=== PATIENT | male | born 1940 | race African-American/Black ===

== ENCOUNTER 2021-03-05 15:58 | Inpatient (IN) | payer OTHER, MEDICAID ==
[~2021-03-05] VITALS: Ht 193 cm; Wt 101.2 kg
[2021-03-05 16:10] VITALS: BP_SYST 142
--- NOTE | 2021-03-05 16:13 | NUR ---
Placed in room 01 . Placed on camp dining room attendant, blood pressure machine and pulse oximeter. To gown for exam. Side rails up.
[2021-03-05] MEDS ORDERED: MOM PO (16:20)
[2021-03-05] MEDS ORDERED: PRAV10TA PO (16:20)
[2021-03-05] MEDS ORDERED: OLAN10TA19 PO (16:20)
[2021-03-05] MEDS ORDERED: CHOL3000 PO (16:20)
[2021-03-05] MEDS ORDERED: ACET325C6 PO (16:20)
[2021-03-05] MEDS ORDERED: HYDR-4039 PO (16:20)
[2021-03-05] MEDS ORDERED: NA P133E41 RC (16:20)
[2021-03-05] MEDS ORDERED: TRAZ-250 PO (16:20)
[2021-03-05] MEDS ORDERED: ALBU8.5H8 INH (16:20)
[2021-03-05] MEDS ORDERED: ASPI-1155 PO (16:20)
[2021-03-05] MEDS ORDERED: FURO-150 PO (16:20)
[2021-03-05] MEDS ORDERED: CARV25TA55 PO (16:20)
[2021-03-05] MEDS ORDERED: ASCO500T20 PO (16:20)
[2021-03-05] MEDS ORDERED: BISA10SU61 RC (16:20)
[2021-03-05] MEDS ORDERED: MEMA10TA PO (16:20)
[2021-03-05] MEDS ORDERED: CHOL2400 MC (16:20)
[2021-03-05] MEDS ORDERED: TAMS0.4C96 PO (16:20)
[2021-03-05] MEDS ORDERED: DOCU-156 PO (16:20)
[2021-03-05] MEDS ORDERED: CRAN450T9 PO (16:20)
[2021-03-05] MEDS ORDERED: MONT10TA33 PO (16:20)
[2021-03-05] MEDS ORDERED: SENN8.6T19 PO (16:20)
--- NOTE | 2021-03-05 16:20 | NUR ---
Medication reconciliation completed with information provided by [facility]. Any prior medication reconciliation on file was reviewed and corrected.
--- NOTE | 2021-03-05 16:22 | NUR ---
PATIENT ARRIVED WITH POLST STATING FULL CODE. Patient's code status is FULL CODE paperwork completed and placed in chart.
--- NOTE | 2021-03-05 16:25 | NUR ---
pt bib ambulance with complaint of generalized weakness. pt is AAOX1 to self. pt denies any pain. pt is able to followe commands. PERRL. pt is able to lift both arms above head but has bilateral lower extremity weakness. pt resting in gurney slightly tachypnic 24 Breaths per minute and slightly elevated blood pressure 142/ 82.
--- NOTE | 2021-03-05 16:40 | NUR ---
# 22 gauge angiocath placed to right FA. Use of asceptic technique. Opsite placed over site. Blood return noted. Blood for lab drawn from site. Flushed with 10 cc of normal saline. No evidence of infiltration noted. Patient tolerated well.
--- NOTE | 2021-03-05 16:58 | NUR ---
COVID AND MRSA SWAB COLLECTED AND SENT TO LAB
--- NOTE | 2021-03-05 17:04 | NUR ---
pt arrives from [facility]
[2021-03-05 17:30] LABS: BILIRUBIN,URINE NEGATIVE (NEGATIVE); BLOOD, URINE 2+ (NEGATIVE); COLOR,URINE YELLOW (YELLOW); GLUCOSE,URINE NEGATIVE (NEGATIVE); KETONES,URINE NEGATIVE (NEGATIVE); LEUKOCYTE ESTERASE ,URINE TRACE (NEGATIVE); NITRITE, URINE NEGATIVE (NEGATIVE); PH,URINE 5.5 (5.0-8.0); PROTEIN URINE 2+ (NEGATIVE); UROBILINOGEN,URINE 0.2 (0.2-1.0)
[2021-03-05] MEDS ORDERED: NACL 0.9% 1,000 ML IV ONE (17:30)
[2021-03-05 17:38] LABS: CLARITY/URINE HAZY (CLEAR)
--- NOTE | 2021-03-05 17:41 | NUR ---
lab at bedside.
[2021-03-05 17:55] LABS: BACTERIA,URINE FEW /HPF (None Seen); MUCUS,URINE None Seen /LPF (None Seen); RBC,URINE 20-50 /HPF (0-3); URINE AMORPHOUS URATE 2+ /HPF (None Seen)
[2021-03-05 17:55] LABS: BASOPHILS # (AUTO) 0.3 K/uL (0.0-0.2); BASOPHILS % (AUTO) 2.1 % (0.0-2.0); EOSINOPHILS # (AUTO) 0.1 K/uL (0.0-0.4); EOSINOPHILS % (AUTO) 0.8 % (0.0-4.0); HEMOGLOBIN 12.8 g/dL (14.0-18.0); LYMPHOCYTES % (AUTO) 8.5 % (20.5-51.5); MEAN CORPUSCULAR HEMOGLOBIN 29 pg (27-31); MEAN CORPUSCULAR HGB CONC 33 % (32-36); MEAN CORPUSCULAR VOLUME 88 fL (79.0-98.0); MONOCYTES # (AUTO) 1.3 K/uL (0.0-1.0); MONOCYTES % (AUTO) 10.8 % (1.7-9.3); NEUTROPHILS # (AUTO) 9.5 K/uL (1.8-7.7); NEUTROPHILS % (AUTO) 77.8 % (40.0-70.0); PLATELET COUNT (AUTO) 224 K/uL (130-430); RED BLOOD CELL COUNT(AUTO) 4.41 MIL/uL (4.2-6.2); RED CELL DISTRIBUTION WIDTH 15.3 % (9.0-15.0); WHITE BLOOD COUNT (AUTO) 12.2 K/uL (4.8-10.8)
[2021-03-05 18:05] LABS: ANION GAP 9 (5-15); CALCIUM 8.8 mg/dL (8.4-11.0); CHLORIDE 108 mmol/L (98-107); CREATININE 1.83 mg/dL (0.55-1.30); GLUCOSE 103 mg/dL (70-99); POTASSIUM 3.9 mmol/L (3.5-5.1); SODIUM SERUM 143 mmol/L (136-145); UREA NITROGEN, BLOOD 18 mg/dL (8-21)
[2021-03-05 18:11] LABS: PROTHROMBIN TIME 10.3 SECS (9.5-12.5)
--- NOTE | 2021-03-05 18:18 | NUR ---
PT WAS GIVEN SANDWHCIH AND WATER. PT TOLERATED WELL. MO COMPLAINTS AT THIS TIME. RESTING IN [facility]
[2021-03-05 18:22] LABS: ALANINE AMINOTRANSFERASE 11 U/L (12-78); ALBUMIN 2.6 g/dL (3.4-4.8); ASPARTATE AMINOTRANSFERASE 6 U/L (10-37); THYROID STIMULATING HORMONE 1.32 uIu/mL (0.36-3.74); TOTAL BILIRUBIN 0.3 mg/dL (0.0-1.0)
--- NOTE | 2021-03-05 18:42 | NUR ---
DAUGHTER RULA) AT BEDSIDE.
--- NOTE | 2021-03-05 18:51 | NUR ---
SPOKE WITH JOSE C (DAUGHTER). [place]. SHE WOULD LIKE US TO NOTIFY A FAMILY FRIEND VIRGINIAJairo RICHARDSONAlexx [phone] OR [phone] IF SHE IS UNABLE TO BE REACHED.
--- NOTE | 2021-03-05 19:12 | NUR ---
endorsed care to May RN
[2021-03-05] MEDS ORDERED: cefTRIAXone 1 GM IVPB PREMIX 50 ML IV ONE (19:15)
--- NOTE | 2021-03-05 19:19 | NUR ---
Swathi zabala in [facility] - 03/05/21 at 1919 by PING CARE ENDORSED TO KAY RALPH
--- NOTE | 2021-03-05 19:30 | NUR ---
Blood for labwork drawn from county agent. Patient tolerated well.
--- NOTE | 2021-03-05 19:40 | NUR ---
Called for admission bed- In-charge will call back when bed is available.
--- NOTE | 2021-03-05 20:11 | NUR ---
Assisted patient with his family to restroom via wheelchair.
--- NOTE | 2021-03-05 21:33 | NUR ---
Patient will be admitted to care of Dr. Grover. Admitted to TELE unit. Will go to room 112A. Belongings list completed. Complete and up to date summary report printed. SBAR report to be given at bedside with opportunity for questions.
--- NOTE | 2021-03-05 22:04 | NUR ---
ADMISSION NOTE Received patient from ER via gurney. Patient admitted with diagnosis of UTI, DEHYDRATION, RENAL FAILURE. Patient is awake, alert, oriented X 1. Patient oriented to hospital room, call light, toileting, pain management and safety-teach back done. Patient informed that KEILY/PETERSON will be nurse and that their room number is 112A. Personal belongings checked and Belongings List documented. Call light within reach.
[2021-03-05 22:08] VITALS: BP_SYST 156; BP_SYST 166
[2021-03-05] MEDS: D5/0.45 NS 1,000 ML IV SCH (22:29)
--- NOTE | 2021-03-05 23:48 | NUR ---
NOTIFIED DR. NINO REGARDING PT HIGH BLOOD PRESSURE. NEW ORDER RECEIVED. WILL CARRY OUT.
[2021-03-06] VITALS (8 sets, daily range): BP systolic 151–169
[2021-03-06] MEDS: cloNIDine HCL 0.1 MG TABLET PO PRN ×2 (00:09→08:45)
--- NOTE | 2021-03-06 00:19 | NUR ---
GI Consult Consult for Dr. Mclean was called, Dr. Hernandez is covering [phone] RE Difficulty swallowing MIGUEL Watts
--- NOTE | 2021-03-06 05:03 | NUR ---
ID Consult Consult for Dr Teressa Moore was called [phone] SHERWIN Watts Addendum: 03/06/21 at 0553 by Mirian Hood RN face sheet was faxed; [phone]
[2021-03-06] MEDS: D5/0.45 NS 1,000 ML IV SCH ×3 (05:14→23:27)
--- NOTE | 2021-03-06 06:45 | NUR ---
Nutrition Update Ned Scale 16 noted. Pt admitted for UTI, Dehydration, Renal failure Diet: 2gm Na BMI: 26.4 kg/m2 RD to follow per nutrition care standards.
--- NOTE | 2021-03-06 06:46 | NUR ---
CLOSING NOTE PATIENT IS SLEEPING IN HIS BED. CHEST RISE AND FALL SYMMETRICAL. PATIENT REMAINS ON 2L VIA NASAL CANNULA. NO SIGNS OF RESPIRATORY DISTRESS NOTED. IV ON RIGHT FOREARM 22 G INTACT AND RUNNING FLUID ORDERED RATE. NO SIGNS OF INFILTRATION NOTED. CALL LIGHT WITHIN REACH. BED ALARM ON AND LOCKED AND PLACED IN THE LOWEST POSITION. CLOSE TO NURSING STATION. ALL NEEDS ARE MET THROUGH ARE MET. SAFETY AND FALL PRECAUTIONS IN PLACED. WILL CONTINUE TO MONITOR UNTIL ENDORSE TO DAY SHIFT RN.
[2021-03-06 06:56] LABS: BASOPHILS % (AUTO) 0.4 % (0.0-2.0); EOSINOPHILS # (AUTO) 0.2 K/uL (0.0-0.4); EOSINOPHILS % (AUTO) 1.9 % (0.0-4.0); HEMATOCRIT 35.6 % (36-54); HEMOGLOBIN 11.8 g/dL (14.0-18.0); LYMPHOCYTES # (AUTO) 1.4 K/uL (1.0-5.5); LYMPHOCYTES % (AUTO) 17.5 % (20.5-51.5); MEAN CORPUSCULAR HEMOGLOBIN 29 pg (27-31); MEAN CORPUSCULAR HGB CONC 33 % (32-36); MEAN CORPUSCULAR VOLUME 88 fL (79.0-98.0); MONOCYTES # (AUTO) 0.9 K/uL (0.0-1.0); NEUTROPHILS # (AUTO) 5.3 K/uL (1.8-7.7); NEUTROPHILS % (AUTO) 68.2 % (40.0-70.0); PLATELET COUNT (AUTO) 201 K/uL (130-430); RED BLOOD CELL COUNT(AUTO) 4.04 MIL/uL (4.2-6.2); WHITE BLOOD COUNT (AUTO) 7.8 K/uL (4.8-10.8)
[2021-03-06 07:27] LABS: ANION GAP 10 (5-15); CHLORIDE 110 mmol/L (98-107); CREATININE 1.48 mg/dL (0.55-1.30); GLUCOSE 110 mg/dL (70-99); POTASSIUM 3.6 mmol/L (3.5-5.1); SODIUM SERUM 145 mmol/L (136-145); UREA NITROGEN, BLOOD 15 mg/dL (8-21)
[2021-03-06 07:33] LABS: PROTHROMBIN TIME 10.3 SECS (9.5-12.5)
--- NOTE | 2021-03-06 07:45 | NUR ---
OPENING NOTES: OPENING NOTES: RECEIVED REPORT FROM VENEER SHEET REPAIRER NURSE. PATIENT IS AWAKE LAYING DOWN IN BED. TOLERATED OXYGEN ON 2L NASAL CANNULA WITH NO DISTRESS NOTED. IV LINE PATENT AND INTACT WITH NO INFILTRATION NOTED. PATIENT STABLE AT THIS TIME. SAFETY, FALL, AND ASPIRATION PRECAUTIONS ARE IN PLACE. BED LOCKED IN LOWEST POSITION AND CALL LIGHT IN REACH. WILL CONTINUE TO MONITOR PATIENT FOR ANY CHANGES.
[2021-03-06 07:46] LABS: CHOLESTEROL 111 mg/dL (<200); HDL CHOLESTEROL 40 mg/dL (>45); LDL CHOLESTEROL 63 mg/dL (<100); TRIGLYCERIDES 73 mg/dL (30-150)
[2021-03-06] MEDS ORDERED: SODIUM PHOSPHATE,MONO-DIBASIC 133 ML ENEMA RC PRN (14:45)
[2021-03-06] MEDS ORDERED: BISACODYL 10 MG/SUPPOSITORY RC PRN (14:45)
[2021-03-06] MEDS ORDERED: ALBUTEROL SULFATE 0.083% 2.5 MG/3 ML VIAL.NEB INH PRN (15:00)
--- NOTE | 2021-03-06 15:31 | NUR ---
CONSULT CARDIOLOGY [facility]HX CHF JOVANA ABRAHAM [phone] DR UPTON IS HERE TO SEE PATIENT
--- NOTE | 2021-03-06 15:40 | NUR ---
PATIENT IS WHEELED TO IMAGING FOR CT OF THE ABDOMEN AND PELVIS. AWAITING TO COME BACK.
--- NOTE | 2021-03-06 16:05 | NUR ---
PATIENT BACK TO HIS ROOM FROM IMAGING. PATIENT STABLE CONDITION.
[2021-03-06] MEDS: MONTELUKAST 10 MG TABLET PO SCH (17:06)
[2021-03-06] MEDS: cefTRIAXone 1 GM IVPB PREMIX 50 ML IV SCH (18:54)
[2021-03-06] MEDS ORDERED: cefTRIAXone 1 GM VIAL IV SCH (19:00)
[2021-03-06] MEDS ORDERED: cefTRIAXone 1 GM VIAL IM SCH (19:00)
--- NOTE | 2021-03-06 19:10 | NUR ---
CLOSING NOTES: PATIENT IS AWAKE LAYING DOWN IN BED. TOLERATED OXYGEN ON 2L NASAL CANNULA WITH NO DISTRESS NOTED. IV LINE PATENT AND INTACT WITH NO INFILTRATION NOTED. PATIENT STABLE AT THIS TIME. SAFETY, FALL, AND ASPIRATION PRECAUTIONS REMAINED IN PLACE. BED LOCKED IN LOWEST POSITION AND CALL LIGHT IN REACH. WILL ENDORSE PATIENT CARE TO ONCOMING SENIOR INSPECTOR NURSE.
--- NOTE | 2021-03-06 19:30 | NUR ---
OPENING NOTE PATIENT IS RESTING IN HIS BED. CHEST RISE AND FALL SYMMETRICAL. PATIENT REMAINS ON 2L. NO SIGNS OF RESPIRATORY DISTRESS NOTED. IV INTACT AND RUNNING FLUID ORDERED RATE. NO SIGNS OF INFILTRATION NOTED. CALL LIGHT WITHIN REACH. BED ALARM ON AND LOCKED AND PLACED IN THE LOWEST POSITION. CLOSE TO NURSING STATION. SAFETY AND FALL PRECAUTIONS IN PLACED. WILL CONTINUE TO MONITOR.
[2021-03-06] MEDS: ASCORBIC ACID 500 MG TABLET PO SCH (20:43)
[2021-03-06] MEDS: MEMANTINE HCL 5 MG TABLET PO SCH (20:43)
[2021-03-06] MEDS: OLANZapine 10 MG TABLET PO SCH (20:43)
[2021-03-06] MEDS: ATORVASTATIN 10 MG TABLET PO SCH (20:50)
[2021-03-06] MEDS: CARVEDILOL 25 MG TABLET (COREG) PO SCH (20:51)
[2021-03-06] MEDS: TAMSULOSIN HCL 0.4 MG CAP PO SCH (20:51)
[2021-03-06] MEDS: traZODone HCL 50 MG TABLET (DESYREL) PO SCH (20:51)
[2021-03-06] MEDS ORDERED: hydrALAZINE HCL 25 MG TABLET PO SCH (21:00)
[2021-03-07] VITALS (7 sets, daily range): BP systolic 149–194
[2021-03-07] MEDS: D5/0.45 NS 1,000 ML IV SCH ×3 (05:32→22:11)
[2021-03-07] MEDS: hydrALAZINE HCL 25 MG TABLET PO SCH ×3 (05:35→21:58)
[2021-03-07 06:32] LABS: BASOPHILS # (AUTO) 0.1 K/uL (0.0-0.2); BASOPHILS % (AUTO) 0.7 % (0.0-2.0); EOSINOPHILS # (AUTO) 0.2 K/uL (0.0-0.4); EOSINOPHILS % (AUTO) 2.4 % (0.0-4.0); HEMOGLOBIN 12.5 g/dL (14.0-18.0); LYMPHOCYTES # (AUTO) 1.1 K/uL (1.0-5.5); LYMPHOCYTES % (AUTO) 12.7 % (20.5-51.5); MEAN CORPUSCULAR HEMOGLOBIN 29 pg (27-31); MEAN CORPUSCULAR HGB CONC 34 % (32-36); MEAN CORPUSCULAR VOLUME 87 fL (79.0-98.0); MONOCYTES # (AUTO) 1.1 K/uL (0.0-1.0); MONOCYTES % (AUTO) 12.7 % (1.7-9.3); NEUTROPHILS # (AUTO) 6.2 K/uL (1.8-7.7); NEUTROPHILS % (AUTO) 71.5 % (40.0-70.0); PLATELET COUNT (AUTO) 213 K/uL (130-430); RED BLOOD CELL COUNT(AUTO) 4.25 MIL/uL (4.2-6.2); RED CELL DISTRIBUTION WIDTH 15.2 % (9.0-15.0); WHITE BLOOD COUNT (AUTO) 8.7 K/uL (4.8-10.8)
--- NOTE | 2021-03-07 06:53 | NUR ---
CLOSING NOTE PATIENT IS RESTING IN HIS BED. PATIENT IS BREATHING EASY UNLABORED TO ROOM AIR. NO SIGNS OF RESPIRATORY DISTRESS NOTED. IV INTACT AND RUNNING FLUID ORDERED RATE. NO SIGNS OF INFILTRATION NOTED. CALL LIGHT WITHIN REACH. BED ALARM ON AND LOCKED AND PLACED IN THE LOWEST POSITION. CLOSE TO NURSING STATION. SAFETY AND FALL PRECAUTIONS IN PLACED. ALL NEEDS ARE MET THROUGHOUT SHIFT. WILL CONTINUE TO MONITOR UNTIL ENDORSE TO DAY SHIFT RN.
[2021-03-07 07:03] LABS: ALANINE AMINOTRANSFERASE 15 U/L (12-78); ALBUMIN 2.2 g/dL (3.4-4.8); ANION GAP 12 (5-15); ASPARTATE AMINOTRANSFERASE 12 U/L (10-37); CHLORIDE 107 mmol/L (98-107); CREATININE 1.39 mg/dL (0.55-1.30); GLUCOSE 103 mg/dL (70-99); POTASSIUM 3.4 mmol/L (3.5-5.1); SODIUM SERUM 143 mmol/L (136-145); TOTAL BILIRUBIN 0.3 mg/dL (0.0-1.0); UREA NITROGEN, BLOOD 11 mg/dL (8-21)
--- NOTE | 2021-03-07 07:42 | NUR ---
RN OPENING NOTE PATIENT APPEARS TO BE RESTING WITH BOTH EYES CLOSED NO SIGNS OF ANY DISTRESS,BREATHING IS EQUAL AND NON LABORED. PATIENT IS ON TELEMONITOR. PATIENT HAS NO OTHER NEEDS AT THIS TIME. REPORT WAS ENDORSED BY NIGHT NURSE.
[2021-03-07] MEDS ORDERED: FUROSEMIDE 20 MG TABLET PO SCH (09:00)
[2021-03-07] MEDS: ASCORBIC ACID 500 MG TABLET PO SCH ×2 (10:00→22:12)
[2021-03-07] MEDS: MEMANTINE HCL 5 MG TABLET PO SCH ×2 (10:00→21:57)
[2021-03-07] MEDS: MILK OF MAGNESIA 30 ML UDC PO SCH (10:00)
[2021-03-07] MEDS: CARVEDILOL 25 MG TABLET (COREG) PO SCH ×2 (10:01→21:56)
[2021-03-07] MEDS: ASPIRIN 81 MG TAB.CHEW PO SCH (10:01)
[2021-03-07] MEDS: DOCUSATE SODIUM 100 MG CAPSULE PO SCH (10:01)
[2021-03-07] MEDS: SENNOSIDES 8.6 MG TABLET PO SCH (10:02)
--- NOTE | 2021-03-07 10:03 | NUR ---
MEDICATION PATIENTS SCHEDULED MEDICATION GIVEN PER ORDER. PATIENT IS AWAKE AND ALERT TOLERATED WELL. PATIENT IS ON TELEMONITOR. PATIENT EDUCATED ESCORT SERVICE ATTENDANT LIGHT, CALL LIGHT IS WITH PATIENT. PATIENT HAS NO OTHER NEEDS AT THIS TIME. NO SIGNS OF ANY DISTRESS.
[2021-03-07] MEDS: cloNIDine HCL 0.1 MG TABLET PO PRN (11:47)
--- NOTE | 2021-03-07 11:49 | NUR ---
MEDICATION/ ELEVATED BLOOD PRESSURE NEW IV FLUID BAG HUNG PER ORDER. PATIENT IS LAYING DOWN IN BED. ORE PUNCHER AT BED SIDE OBTAINING VITAL SIGNS. PATIENTS BLOOD PRESSURE IS ELEVATED MEDICATED WITH PRN MEDICATION. PATENT TOLERATED WELL. PATEINT HAS CALL LIGHT WITH HIM EDUCATED TO USE FOR ASSISTANCE. PATIENT IS CLOSE TO NURSES STATION. PATIENT HAS NO SINS OF ANY DISTRESS, BREATHING IS EQUAL AND NON LABORED. NO OTHER NEEDS AT THIS TIME.
--- NOTE | 2021-03-07 13:57 | NUR ---
MEDICATION PATIENTS SCHEDULED BLOOD PRESSURE MEDICATION GIVEN PER ORDER. PATIENT BP HAS IMPROVED TO 150/85 BUT STILL ELEVATED. PATIENT IS LAYING IN BED NO SIGNS OF ANY DISTRESS,BREATHING IS EQUAL AND NON LABORED. ALL SAFETY PRECAUTIONS IN PLACE. CALL LIGHT IS WITH HIM EDUCATED TO USE FOR ASSISTANCE. PATIENT IS CLOSE TO NURSES STATION NO OTHER NEEDS AT THIS TIME.
--- NOTE | 2021-03-07 15:21 | NUR ---
rn rounding patient is awake and laying in bed, no signs of any distress, breathing is equal and non labored. patient has all safety precautions in place. patient is close to nurses station. call light is with him educated to use for assistance.patient has no other needs at this time.
--- NOTE | 2021-03-07 17:00 | NUR ---
spoke with received orders for scd for dvt proph states he will be here in [address] order for scd. Patient has no other needs at this time. all safety precautions in place. patient is close to nurses station.
[2021-03-07] MEDS: cefTRIAXone 1 GM IVPB PREMIX 50 ML IV SCH (18:20)
[2021-03-07] MEDS: MONTELUKAST 10 MG TABLET PO SCH (18:20)
--- NOTE | 2021-03-07 18:24 | NUR ---
RN CLOSING NOTE PATIENT IS AWAKE AND ALERT SITTING UP IN BED EATING DINNER. SCHEDULED MEDICATION GIVEN PER ORDER. PATIENT HAS CALL LIGHT WITH HIM SHOWED HIM HOW TO USE CALL LIGHT. PATIENT SHOWS NO SIGNS OF ANY DISTRESS, BREATHING IS EQUAL AND NON LABORED. PATIENT IS CLOSE TO NURSES STATION. NO OTHER NEEDS AT THIS TIME.
--- NOTE | 2021-03-07 21:20 | NUR ---
TRANSFER OF CARE RECEIVED SBAR FROM RAMO VILLASENOR. WILL CONTINUE CARE.
--- NOTE | 2021-03-07 21:25 | NUR ---
INITIAL NOTES PATIENT AMBULATING TO COMMODE. NO COMPLAINTS OF DISTRESS AT THIS TIME. CALL LIGHT WITHIN REACH, BED ALARM ON, BED LOCKED, BED AT LOWEST POSITION. FALL, ASPIRATION, ISOLATION, AND SAFETY PRECAUTIONS IN PLACE. DISCUSSED PLAN OF CARE WITH PATIENT. WILL CONTINUE TO MONITOR.
[2021-03-07] MEDS: ATORVASTATIN 10 MG TABLET PO SCH (21:57)
[2021-03-07] MEDS: traZODone HCL 50 MG TABLET (DESYREL) PO SCH (21:57)
[2021-03-07] MEDS: TAMSULOSIN HCL 0.4 MG CAP PO SCH (21:57)
[2021-03-07] MEDS: OLANZapine 10 MG TABLET PO SCH (21:58)
[2021-03-08] MEDS: cloNIDine HCL 0.1 MG TABLET PO PRN (00:23)
[2021-03-08 01:29] VITALS: BP_SYST 175
--- NOTE | 2021-03-08 02:54 | NUR ---
TRANSFER OF CARE SBAR PROVIDED TO RAMO PEDERSON. WILL ENDORSE CARE, ALL NEEDS MET AT THIS TIME.
--- NOTE | 2021-03-08 03:00 | NUR ---
ROUNDS PATIENT RESTING IN BED. BREATHING UNLABORED. IVF INFUSING. BED ALARM ON.
--- NOTE | 2021-03-08 05:20 | NUR ---
AM CARE AM CARE DONE BY BOTTOM STEEP TENDER.
[2021-03-08] MEDS: hydrALAZINE HCL 25 MG TABLET PO SCH ×3 (05:40→21:59)
--- NOTE | 2021-03-08 05:40 | NUR ---
BP BP 161/93. PATIENT DUE BP MEDICATION GIVEN AND TOLERATED.
[2021-03-08 05:44] VITALS: BP_SYST 161
--- NOTE | 2021-03-08 06:31 | NUR ---
CLOSING NOTES PATIENT NEEDS ATTENDED. IVF INFUSING WITH IV LINE INTACT AND PATENT. NO C/O PAIN. BED IN LOWEST LOCKED POSITION WITH ALARM ON. CALL LIGHT WITH IN REACH.
[2021-03-08 08:13] VITALS: BP_SYST 154
--- NOTE | 2021-03-08 08:14 | NUR ---
OPENING NOTES ASLEEP IN BED. ON 2 LITERS OF OXYGEN VIA NASAL CANNULA. NO SIGN OF PAIN OR SHORTNESS OF BREATH. IV FLUID INFUSING WELL ON RIGHT ANTECUBITAL. FALL AND SAFETY CHECKS DONE. CALL LIGHT WITHIN REACH. WILL MONITOR.
[2021-03-08] MEDS: D5/0.45 NS 1,000 ML IV SCH ×2 (08:36→16:27)
[2021-03-08] MEDS: SENNOSIDES 8.6 MG TABLET PO SCH (10:11)
[2021-03-08] MEDS: MILK OF MAGNESIA 30 ML UDC PO SCH (10:11)
[2021-03-08] MEDS: ASPIRIN 81 MG TAB.CHEW PO SCH (10:12)
[2021-03-08] MEDS: MEMANTINE HCL 5 MG TABLET PO SCH ×2 (10:12→21:57)
[2021-03-08] MEDS: ASCORBIC ACID 500 MG TABLET PO SCH ×2 (10:13→21:56)
[2021-03-08] MEDS: FUROSEMIDE 20 MG TABLET PO SCH (10:13)
[2021-03-08] MEDS: DOCUSATE SODIUM 100 MG CAPSULE PO SCH (10:13)
[2021-03-08] MEDS: CARVEDILOL 25 MG TABLET (COREG) PO SCH ×2 (10:13→21:58)
[2021-03-08 12:51] VITALS: BP_SYST 156
[2021-03-08 16:00] VITALS: BP_SYST 151
--- NOTE | 2021-03-08 16:00 | NUR ---
FELICIANO note: per Grace/Bren jessica, the pt is accepting back to room 19 A. RN to report # [phone].
--- NOTE | 2021-03-08 16:44 | NUR ---
SPOKE TO TEMITOPE AT [facility],BOOKED WILL CALL TODAY 03/08/21 EXTENDED ETA,TO [facility] ROOM 19A# PH :[phone]
[2021-03-08] MEDS: MONTELUKAST 10 MG TABLET PO SCH (18:22)
[2021-03-08] MEDS: cefTRIAXone 1 GM IVPB PREMIX 50 ML IV SCH (18:22)
--- NOTE | 2021-03-08 19:30 | NUR ---
OPENING NOTE PATIENT IS RESTING IN HIS BED. CHEST RISE AND FALL SYMMETRICAL. PATIENT IS ON 1L OF OXYGEN VIA NASAL CANNULA. BREATHING EASY, UNLABORED. NO SIGNS OF RESPIRATORY DISTRESS NOTED. IV INTACT AND RUNNING FLUID ORDERED RATE. NO SIGNS OF INFILTRATION NOTED. CALL LIGHT WITHIN REACH. BED ALARM ON AND LOCKED AND PLACED IN THE LOWEST POSITION CLOSE TO NURSING STATION. SAFETY, FALL, AND ASPIRATION PRECAUTIONS IN PLACED. WILL CONTINUE TO MONITOR.
[2021-03-08 20:00] VITALS: BP_SYST 158
--- NOTE | 2021-03-08 20:00 | NUR ---
PAGED DR. NINO REGARDING PT DISCHARGE ORDER.
--- NOTE | 2021-03-08 20:30 | NUR ---
CALLED DR. NINO SEVERAL TIMES REGARDING PT DISCHARGE ORDER, NO ANSWER. STILL AWAITING MD TO CALL BACK.
--- NOTE | 2021-03-08 21:26 | NUR ---
NEVER CALLED BACK. UPDATED TO JOSE C (DAUGHTER) REGARDING PT DISCHARGE STATUS. JOSE C MADE AWARE PT IS NOT GOING BACK TO [facility].
--- NOTE | 2021-03-08 21:28 | NUR ---
UPDATED TO CHAVA/KASEY HERNÁNDEZ [facility] REGARDING PT DISCHARGE STATUS, STILL AWAITING MD TO CALL US BACK. CHAVA MADE AWARE PT IS NOT TRANSFERRING OUT TONIGHT.
[2021-03-08] MEDS: TAMSULOSIN HCL 0.4 MG CAP PO SCH (21:56)
[2021-03-08] MEDS: ATORVASTATIN 10 MG TABLET PO SCH (21:58)
[2021-03-08] MEDS: OLANZapine 10 MG TABLET PO SCH (21:58)
[2021-03-08] MEDS: traZODone HCL 50 MG TABLET (DESYREL) PO SCH (21:58)
[2021-03-09 00:02] VITALS: BP_SYST 145
[2021-03-09] MEDS: D5/0.45 NS 1,000 ML IV SCH (01:35)
--- NOTE | 2021-03-09 03:31 | NUR ---
DR. NINO CALLED BACK. STATED ITS OK TO DISCHARGE PATIENT IN THE MORNING.
--- NOTE | 2021-03-09 03:39 | NUR ---
SPOKE TO VILLA ([facility]), [phone] REGARDING PT DISCHARGE ORDER, VILLA STATED THAT THEY CAN ACCEPT THE PATIENT AFTER 9AM.
[2021-03-09 05:09] VITALS: BP_SYST 171
[2021-03-09] MEDS: hydrALAZINE HCL 25 MG TABLET PO SCH (05:09)
--- NOTE | 2021-03-09 05:25 | NUR ---
SET UP FOR AMBULANCE MEDIC= , AROUND 10-10:30AM.
--- NOTE | 2021-03-09 05:33 | NUR ---
UPDATED TO JOSE C (DAUGHTER) [phone] REGARDING PT IS GOING BACK TO [facility] ([facility]) AROUND 10-10:30AM.
[2021-03-09 06:12] VITALS: BP_SYST 159
--- NOTE | 2021-03-09 06:38 | NUR ---
CLOSING NOTE PATIENT IS RESTING IN HIS BED. CHEST RISE AND FALL SYMMETRICAL. PATIENT REMAINS ON 1L. BREATHING EASY, UNLABORED. NO SIGNS OF RESPIRATORY DISTRESS NOTED. IV INTACT AND RUNNING FLUID ORDERED RATE. NO SIGNS OF INFILTRATION NOTED. CALL LIGHT WITHIN REACH. BED ALARM ON AND LOCKED AND PLACED IN THE LOWEST POSITION CLOSE TO NURSING STATION. SAFETY, FALL, AND ASPIRATION PRECAUTIONS IN PLACED. ALL NEEDS ARE MET THROUGHOUT SHIFT. WILL CONTINUE TO MONITOR UNTIL ENDORSE TO DAY SHIFT RN.
[2021-03-09 07:09] LABS: BASOPHILS # (AUTO) 0.1 K/uL (0.0-0.2); BASOPHILS % (AUTO) 0.8 % (0.0-2.0); EOSINOPHILS # (AUTO) 0.4 K/uL (0.0-0.4); EOSINOPHILS % (AUTO) 3.3 % (0.0-4.0); HEMATOCRIT 39.4 % (36-54); HEMOGLOBIN 13.3 g/dL (14.0-18.0); LYMPHOCYTES # (AUTO) 2.2 K/uL (1.0-5.5); LYMPHOCYTES % (AUTO) 15.7 % (20.5-51.5); MEAN CORPUSCULAR HEMOGLOBIN 30 pg (27-31); MEAN CORPUSCULAR HGB CONC 34 % (32-36); MEAN CORPUSCULAR VOLUME 88 fL (79.0-98.0); MONOCYTES # (AUTO) 2.2 K/uL (0.0-1.0); NEUTROPHILS # (AUTO) 8.8 K/uL (1.8-7.7); NEUTROPHILS % (AUTO) 64.2 % (40.0-70.0); PLATELET COUNT (AUTO) 229 K/uL (130-430); WHITE BLOOD COUNT (AUTO) 13.8 K/uL (4.8-10.8)
[2021-03-09 07:44] LABS: ANION GAP 16 (5-15); CALCIUM 8.2 mg/dL (8.4-11.0); CHLORIDE 107 mmol/L (98-107); CREATININE 1.24 mg/dL (0.55-1.30); GLUCOSE 110 mg/dL (70-99); POTASSIUM 4.1 mmol/L (3.5-5.1); SODIUM SERUM 143 mmol/L (136-145); UREA NITROGEN, BLOOD 10 mg/dL (8-21)
[2021-03-09 08:00] VITALS: BP_SYST 159
--- NOTE | 2021-03-09 08:00 | NUR ---
OPENING NOTES: PATIENT RESTING IN BED. NO SIGNS OF ACUTE DISTRESS NOTED. FALL, SAFETY AND ASPIRATION PRECAUTION REINFORCED. CALL LIGHT WITHIN REACH.
[2021-03-09] MEDS: FUROSEMIDE 20 MG TABLET PO SCH (08:21)
[2021-03-09] MEDS: CARVEDILOL 25 MG TABLET (COREG) PO SCH (08:21)
[2021-03-09] MEDS: DOCUSATE SODIUM 100 MG CAPSULE PO SCH (08:21)
[2021-03-09] MEDS: MILK OF MAGNESIA 30 ML UDC PO SCH (08:22)
[2021-03-09] MEDS: ASCORBIC ACID 500 MG TABLET PO SCH (08:22)
[2021-03-09] MEDS: ASPIRIN 81 MG TAB.CHEW PO SCH (08:22)
[2021-03-09] MEDS: MEMANTINE HCL 5 MG TABLET PO SCH (08:22)
[2021-03-09] MEDS: SENNOSIDES 8.6 MG TABLET PO SCH (08:22)
[2021-03-09] MEDS ORDERED: LEVO500T89 PO (10:31)
[2021-03-09 10:52] VITALS: BP_SYST 148
--- NOTE | 2021-03-09 11:40 | NUR ---
D/C Patient Patient TRANSFERRED TO [facility] via [facility]. Reports given to EMT. patient in stable condition. IV dc and covered with intact dressing. All belongings sent with patient.
[2021-03-10] MEDS ORDERED: levoFLOXacin 500 MG TABLET PO SCH (09:00)
== END 2021-03-09 11:40 | DRG 871 ==
LOC: SED 15:58 → STU 19:21
PROVIDERS: ADMIT Internal Medicine; ATTEND Internal Medicine
DX: A41.1 Sepsis due to other specified staphylococcus (principal); E43 Unspecified severe protein-calorie malnutrition; N39.0 Urinary tract infection, site not specified; F20.0 Paranoid schizophrenia; I13.0 Hypertensive heart and chronic kidney disease with heart failure and stage 1 through stage 4 chronic kidney disease, or unspecified chronic kidney disease; I50.32 Chronic diastolic (congestive) heart failure; I16.0 Hypertensive urgency; Z20.822 Contact with and (suspected) exposure to COVID-19; D64.9 Anemia, unspecified; F32.9 Major depressive disorder, single episode, unspecified; J44.9 Chronic obstructive pulmonary disease, unspecified; N40.0 Benign prostatic hyperplasia without lower urinary tract symptoms; R13.10 Dysphagia, unspecified; E86.0 Dehydration; N18.30 Chronic kidney disease, stage 3 unspecified; G30.9 Alzheimer's disease, unspecified; F02.80 Dementia in other diseases classified elsewhere, unspecified severity, without behavioral disturbance, psychotic disturbance, mood disturbance, and anxiety; I73.9 Peripheral vascular disease, unspecified; I87.8 Other specified disorders of veins; F41.9 Anxiety disorder, unspecified; Z68.27 Body mass index [BMI] 27.0-27.9, adult; Z79.899 Other long term (current) drug therapy; Z88.8 Allergy status to other drugs, medicaments and biological substances; Z79.82 Long term (current) use of aspirin; Z91.018 Allergy to other foods
CPT/HCPCS: 36415; 71045; 76376; 80048; 80053; 80061; 81000; 83605; 84443; 84484; 85025; 85379; 85610-TC; 85730-TC; 87040-TC; 87081; 87086; 87186-TC; 93005; 93306; 96361; 96365; 99285; G0378; J0696

== ENCOUNTER 2023-09-19 12:03 | Inpatient (IN) | payer OTHER, MEDICAID ==
[~2023-09-19] VITALS: Ht 208.3 cm; Wt 90.7 kg
[2023-09-19 12:03] VITALS: BP_SYST 159; PULSE 69; RESP 18; TEMP 97.9; O2SAT 88
[~2023-09-19 12:03] MED LIST: ACET325C6 PO; ALBU8.5H8 INH; ASCO500T20 PO; ASPI-1155 PO; BISA10SU61 RC; CARV25TA55 PO; CHOL2400 MC; CHOL3000 PO; CRAN450T9 PO; DOCU-156 PO; FURO-150 PO; HYDR-4039 PO; LEVO-62 PO; MEMA10TA PO; MOM PO; MONT-40 PO; NA P133E41 RC; OLAN10TA71 PO; PRAV10TA PO; SENN8.6T19 PO; TAMS0.4C96 PO; TRAZ-250 PO
[2023-09-19] MEDS ORDERED: NACL 0.9% 1,000 ML IV ONE (12:30)
[2023-09-19] MEDS ORDERED: ONDANSETRON HCL 4 MG/2 ML VIAL IVP ONE (12:30)
[2023-09-19 12:45] LABS: BASOPHILS % (AUTO) 0.7 % (0.0-2.0); EOSINOPHILS # (AUTO) 0.1 K/uL (0.0-0.4); EOSINOPHILS % (AUTO) 2.3 % (0.0-4.0); HEMATOCRIT 40.9 % (36-54); HEMOGLOBIN 13.7 g/dL (14.0-18.0); LYMPHOCYTES % (AUTO) 25.7 % (20.5-51.5); MEAN CORPUSCULAR HEMOGLOBIN 30 pg (27-31); MEAN CORPUSCULAR HGB CONC 34 % (32-36); MEAN CORPUSCULAR VOLUME 89 fL (79.0-98.0); MONOCYTES # (AUTO) 0.5 K/uL (0.0-1.0); MONOCYTES % (AUTO) 13.8 % (1.7-9.3); NEUTROPHILS # (AUTO) 2.3 K/uL (1.8-7.7); NEUTROPHILS % (AUTO) 57.5 % (40.0-70.0); PLATELET COUNT (AUTO) 175 K/uL (130-430); RED BLOOD CELL COUNT(AUTO) 4.57 MIL/uL (4.2-6.2); RED CELL DISTRIBUTION WIDTH 15.5 % (9.0-15.0)
[2023-09-19 13:12] LABS: ALANINE AMINOTRANSFERASE 14 U/L (12-78); ALBUMIN 3.2 g/dL (3.4-4.8); ANION GAP 6 (5-15); ASPARTATE AMINOTRANSFERASE 16 U/L (10-37); BILIRUBIN,DIRECT 0.1 mg/dL (0.0-0.3); CARBON DIOXIDE 30 mmol/L (23-29); CHLORIDE 108 mmol/L (98-107); CREATININE 1.67 mg/dL (0.55-1.30); GLUCOSE 106 mg/dL (74-106); LIPASE 18 U/L (16-77); POTASSIUM 3.7 mmol/L (3.5-5.1); SODIUM SERUM 144 mmol/L (136-145); TOTAL BILIRUBIN 0.2 mg/dL (0.0-1.0); TOTAL PROTEIN, SERUM 7.1 g/dL (6.4-8.3); UREA NITROGEN, BLOOD 19 mg/dL (8-21)
[2023-09-19 14:19] LABS: BILIRUBIN,URINE NEGATIVE (NEGATIVE); CLARITY/URINE CLOUDY (CLEAR); COLOR,URINE YELLOW (YELLOW); GLUCOSE,URINE NEGATIVE (NEGATIVE); KETONES,URINE NEGATIVE (NEGATIVE); LEUKOCYTE ESTERASE ,URINE 3+ (NEGATIVE); NITRITE, URINE NEGATIVE (NEGATIVE); PH,URINE 7.5 (5.0-8.0); PROTEIN URINE 2+ (NEGATIVE); UROBILINOGEN,URINE 0.2 (0.2-1.0)
[2023-09-19 14:38] LABS: BLOOD, URINE TRACE (NEGATIVE)
[2023-09-19 14:50] LABS: RBC,URINE 0-3 /HPF (0-3)
[2023-09-19 14:51] LABS: BACTERIA,URINE MANY /HPF (None Seen); TRIPLE PHOSPHATE CRYSTAL,UR 0-10 /HPF (None Seen)
[2023-09-19] MEDS ORDERED: cefTRIAXone 1 GM in D5W 50 ML IV ONE (15:15)
[2023-09-19] MEDS ORDERED: D5/0.45 NS 1,000 ML IV ONE (15:15)
[2023-09-19 15:21] LABS: PROTHROMBIN TIME 10.2 SECS (9.5-12.5)
[2023-09-19] MEDS ORDERED: cefTRIAXone 1 GM VIAL ONE (16:18)
[2023-09-19] MEDS ORDERED: ONDANSETRON HCL 4 MG/2 ML VIAL IVP PRN (18:00)
[2023-09-19] MEDS ORDERED: ACETAMINOPHEN 325 MG TABLET PO PRN (18:15)
[2023-09-19] MEDS ORDERED: ALBUTEROL MDI INHALATION 8 GM INH INH PRN (18:15)
[2023-09-19] MEDS ORDERED: SODIUM PHOSPHATE,MONO-DIBASIC 133 ML ENEMA RC PRN (18:15)
[2023-09-19] MEDS ORDERED: cefTRIAXone 1 GM in D5W 50 ML IV SCH (18:15)
[2023-09-19] MEDS ORDERED: BISACODYL 10 MG/SUPPOSITORY RC PRN (18:15)
[2023-09-19] MEDS: D5W 1,000 ML IV SCH (18:18)
[2023-09-19] MEDS ORDERED: NON-FORMULARY MEDICATION (Cranberry Fruit (Cranberry) 1 TAB) PO SCH (21:00)
[2023-09-19] MEDS ORDERED: PRAVASTATIN SODIUM 10 MG TABLET (PRAVACHOL) PO SCH (21:00)
[2023-09-19 22:00] VITALS: BP_SYST 154; BP_SYST 159; PULSE 71; PULSE 84; RESP 18; TEMP 97.4; O2SAT 95; O2SAT 99
[2023-09-20] VITALS (9 sets, daily range): BP systolic 141–187; PULSE 63–85; RESP 16–18; TEMP 96.7–98.8; O2SAT 93–97
[2023-09-20] MEDS: TAMSULOSIN HCL 0.4 MG CAP PO SCH ×2 (00:29→21:15)
[2023-09-20] MEDS: MEMANTINE HCL 5 MG TABLET PO SCH ×3 (00:29→21:13)
[2023-09-20] MEDS: hydrALAZINE HCL 25 MG TABLET PO SCH ×3 (00:30→21:14)
[2023-09-20] MEDS: ASCORBIC ACID 500 MG TABLET PO SCH ×3 (00:30→21:13)
[2023-09-20] MEDS: OLANZapine 10 MG TABLET PO SCH ×2 (00:30→21:13)
[2023-09-20] MEDS: traZODone HCL 50 MG TABLET (DESYREL) PO SCH ×2 (00:31→21:14)
[2023-09-20] MEDS: PANTOPRAZOLE SODIUM 40 MG/VIAL (PROTONIX) IVP SCH ×3 (00:31→21:12)
[2023-09-20] MEDS: CARVEDILOL 25 MG TABLET (COREG) PO SCH ×3 (00:32→21:14)
[2023-09-20] MEDS: D5W 1,000 ML IV SCH ×2 (05:08→18:12)
[2023-09-20] MEDS ORDERED: ALBUTEROL SULFATE 0.083% 2.5 MG/3 ML VIAL.NEB INH PRN (06:40)
[2023-09-20 06:48] LABS: BASOPHILS % (AUTO) 0.2 % (0.0-2.0); EOSINOPHILS # (AUTO) 0.1 K/uL (0.0-0.4); EOSINOPHILS % (AUTO) 2.1 % (0.0-4.0); HEMATOCRIT 38.9 % (36-54); HEMOGLOBIN 13.1 g/dL (14.0-18.0); LYMPHOCYTES # (AUTO) 1.2 K/uL (1.0-5.5); LYMPHOCYTES % (AUTO) 23.5 % (20.5-51.5); MEAN CORPUSCULAR HEMOGLOBIN 30 pg (27-31); MEAN CORPUSCULAR HGB CONC 34 % (32-36); MEAN CORPUSCULAR VOLUME 89 fL (79.0-98.0); MONOCYTES # (AUTO) 0.8 K/uL (0.0-1.0); MONOCYTES % (AUTO) 14.8 % (1.7-9.3); NEUTROPHILS # (AUTO) 3.1 K/uL (1.8-7.7); NEUTROPHILS % (AUTO) 59.4 % (40.0-70.0); PLATELET COUNT (AUTO) 178 K/uL (130-430); RED BLOOD CELL COUNT(AUTO) 4.36 MIL/uL (4.2-6.2); RED CELL DISTRIBUTION WIDTH 15.2 % (9.0-15.0); WHITE BLOOD COUNT (AUTO) 5.2 K/uL (4.8-10.8)
[2023-09-20 07:50] LABS: ALANINE AMINOTRANSFERASE 18 U/L (12-78); ALBUMIN 2.8 g/dL (3.4-4.8); ANION GAP 6 (5-15); ASPARTATE AMINOTRANSFERASE 15 U/L (10-37); CALCIUM 8.2 mg/dL (8.4-11.0); CARBON DIOXIDE 26 mmol/L (23-29); CHLORIDE 106 mmol/L (98-107); CREATININE 1.47 mg/dL (0.55-1.30); GLUCOSE 104 mg/dL (74-106); POTASSIUM 3.8 mmol/L (3.5-5.1); SODIUM SERUM 138 mmol/L (136-145); TOTAL BILIRUBIN 0.3 mg/dL (0.0-1.0); TOTAL PROTEIN, SERUM 6.3 g/dL (6.4-8.3); UREA NITROGEN, BLOOD 14 mg/dL (8-21)
[2023-09-20] MEDS: CHOLECALCIFEROL (VITAMIN D3) 5,000 UNIT TABLET PO SCH (08:50)
[2023-09-20] MEDS: SENNOSIDES 8.6 MG TABLET PO SCH (08:52)
[2023-09-20] MEDS: FUROSEMIDE 20 MG TABLET PO SCH (08:52)
[2023-09-20] MEDS: DOCUSATE SODIUM 100 MG CAPSULE PO SCH (08:53)
[2023-09-20] MEDS: ASPIRIN 81 MG TAB.CHEW PO SCH (08:53)
[2023-09-20] MEDS ORDERED: cloNIDine HCL 0.1 MG TABLET PO PRN (12:45)
[2023-09-20] MEDS: MONTELUKAST 10 MG TABLET PO SCH (18:10)
[2023-09-20] MEDS: cefTRIAXone 1 GM in D5W 50 ML IV SCH (18:34)
[2023-09-20] MEDS: ATORVASTATIN 10 MG TABLET PO SCH (21:14)
[2023-09-21 00:01] VITALS: BP_SYST 128; PULSE 72; RESP 18; TEMP 97.6; O2SAT 98
[2023-09-21 08:00] VITALS: BP_SYST 165; PULSE 85; RESP 16; TEMP 97; O2SAT 96
[2023-09-21 08:10] VITALS: O2SAT 95
[2023-09-21] MEDS: PANTOPRAZOLE SODIUM 40 MG/VIAL (PROTONIX) IVP SCH ×2 (08:48→21:46)
[2023-09-21] MEDS: MEMANTINE HCL 5 MG TABLET PO SCH ×2 (08:48→21:43)
[2023-09-21] MEDS: hydrALAZINE HCL 25 MG TABLET PO SCH ×2 (08:49→21:44)
[2023-09-21] MEDS: CARVEDILOL 25 MG TABLET (COREG) PO SCH ×2 (08:50→21:45)
[2023-09-21] MEDS: ASCORBIC ACID 500 MG TABLET PO SCH ×2 (08:50→21:43)
[2023-09-21] MEDS: ASPIRIN 81 MG TAB.CHEW PO SCH (08:50)
[2023-09-21] MEDS: FUROSEMIDE 20 MG TABLET PO SCH (08:51)
[2023-09-21] MEDS: DOCUSATE SODIUM 100 MG CAPSULE PO SCH (08:52)
[2023-09-21] MEDS: CHOLECALCIFEROL (VITAMIN D3) 5,000 UNIT TABLET PO SCH (08:52)
[2023-09-21] MEDS: SENNOSIDES 8.6 MG TABLET PO SCH (08:52)
[2023-09-21] MEDS: D5W 1,000 ML IV SCH (08:52)
[2023-09-21 10:32] VITALS: BP_SYST 165; PULSE 85; O2SAT 96
[2023-09-21] MEDS ORDERED: BISACODYL 10 MG/SUPPOSITORY RC PRN ×2 (15:30→16:45)
[2023-09-21] MEDS ORDERED: BISACODYL 10 MG/SUPPOSITORY RC ONE ×2 (15:45→17:30)
[2023-09-21 16:14] VITALS: BP_SYST 157; PULSE 74; RESP 18; TEMP 97.6; O2SAT 96
[2023-09-21] MEDS ORDERED: MINERAL OIL 133 ML ENEMA RC ONE (17:30)
[2023-09-21] MEDS: MONTELUKAST 10 MG TABLET PO SCH (17:57)
[2023-09-21] MEDS: cefTRIAXone 1 GM in D5W 50 ML IV SCH (18:22)
[2023-09-21 20:00] VITALS: BP_SYST 155; PULSE 85; RESP 18; TEMP 97.7; O2SAT 96
[2023-09-21] MEDS: ATORVASTATIN 10 MG TABLET PO SCH (21:42)
[2023-09-21] MEDS: OLANZapine 10 MG TABLET PO SCH (21:42)
[2023-09-21] MEDS: traZODone HCL 50 MG TABLET (DESYREL) PO SCH (21:42)
[2023-09-21] MEDS: TAMSULOSIN HCL 0.4 MG CAP PO SCH (21:43)
[2023-09-22] VITALS: BP_SYST 149; PULSE 67; RESP 16; TEMP 98.4; O2SAT 97
[2023-09-22 07:13] LABS: BASOPHILS # (AUTO) 0.1 K/uL (0.0-0.2); BASOPHILS % (AUTO) 1.5 % (0.0-2.0); EOSINOPHILS # (AUTO) 0.1 K/uL (0.0-0.4); EOSINOPHILS % (AUTO) 2.5 % (0.0-4.0); HEMOGLOBIN 13.4 g/dL (14.0-18.0); LYMPHOCYTES # (AUTO) 1.2 K/uL (1.0-5.5); LYMPHOCYTES % (AUTO) 21.8 % (20.5-51.5); MEAN CORPUSCULAR HEMOGLOBIN 30 pg (27-31); MEAN CORPUSCULAR HGB CONC 34 % (32-36); MEAN CORPUSCULAR VOLUME 89 fL (79.0-98.0); MONOCYTES # (AUTO) 0.9 K/uL (0.0-1.0); MONOCYTES % (AUTO) 16.4 % (1.7-9.3); NEUTROPHILS # (AUTO) 3.1 K/uL (1.8-7.7); NEUTROPHILS % (AUTO) 57.8 % (40.0-70.0); PLATELET COUNT (AUTO) 174 K/uL (130-430); RED BLOOD CELL COUNT(AUTO) 4.52 MIL/uL (4.2-6.2); RED CELL DISTRIBUTION WIDTH 15.2 % (9.0-15.0); WHITE BLOOD COUNT (AUTO) 5.4 K/uL (4.8-10.8)
[2023-09-22 07:19] LABS: ANION GAP 9 (5-15); CALCIUM 8.8 mg/dL (8.4-11.0); CARBON DIOXIDE 29 mmol/L (23-29); CHLORIDE 104 mmol/L (98-107); CREATININE 1.66 mg/dL (0.55-1.30); GLUCOSE 93 mg/dL (74-106); SODIUM SERUM 142 mmol/L (136-145); UREA NITROGEN, BLOOD 18 mg/dL (8-21)
[2023-09-22] MEDS: D5W 1,000 ML IV SCH ×2 (08:28→22:44)
[2023-09-22] MEDS: ASCORBIC ACID 500 MG TABLET PO SCH ×2 (08:28→21:26)
[2023-09-22] MEDS: SENNOSIDES 8.6 MG TABLET PO SCH (08:28)
[2023-09-22] MEDS: MEMANTINE HCL 5 MG TABLET PO SCH ×2 (08:29→21:41)
[2023-09-22] MEDS: DOCUSATE SODIUM 100 MG CAPSULE PO SCH ×2 (08:29→21:26)
[2023-09-22] MEDS: CHOLECALCIFEROL (VITAMIN D3) 5,000 UNIT TABLET PO SCH (08:29)
[2023-09-22] MEDS: ASPIRIN 81 MG TAB.CHEW PO SCH (08:29)
[2023-09-22] MEDS: PANTOPRAZOLE SODIUM 40 MG/VIAL (PROTONIX) IVP SCH ×2 (08:30→21:27)
[2023-09-22] MEDS: hydrALAZINE HCL 25 MG TABLET PO SCH ×2 (08:30→21:28)
[2023-09-22] MEDS: CARVEDILOL 25 MG TABLET (COREG) PO SCH ×2 (08:30→21:27)
[2023-09-22] MEDS: FUROSEMIDE 20 MG TABLET PO SCH (08:31)
[2023-09-22 09:14] VITALS: O2SAT 96
[2023-09-22 09:45] VITALS: BP_SYST 178; PULSE 75; RESP 18; TEMP 98.5; O2SAT 96
[2023-09-22 11:04] VITALS: BP_SYST 148; PULSE 71; RESP 16; TEMP 97.8; O2SAT 94
[2023-09-22 15:03] VITALS: BP_SYST 139; PULSE 70; RESP 16; TEMP 97.7; O2SAT 93
[2023-09-22] MEDS: MONTELUKAST 10 MG TABLET PO SCH (18:01)
[2023-09-22] MEDS: cefTRIAXone 1 GM in D5W 50 ML IV SCH (18:01)
[2023-09-22 20:00] VITALS: BP_SYST 147; PULSE 75; RESP 18; TEMP 97.5
[2023-09-22] MEDS: TAMSULOSIN HCL 0.4 MG CAP PO SCH (21:25)
[2023-09-22] MEDS: ATORVASTATIN 10 MG TABLET PO SCH (21:26)
[2023-09-22] MEDS: OLANZapine 10 MG TABLET PO SCH (21:26)
[2023-09-22] MEDS: traZODone HCL 50 MG TABLET (DESYREL) PO SCH (21:41)
[2023-09-23] VITALS: BP_SYST 135; PULSE 64; RESP 18; TEMP 98.8; O2SAT 92
[2023-09-23 06:55] LABS: BASOPHILS % (AUTO) 0.4 % (0.0-2.0); EOSINOPHILS # (AUTO) 0.2 K/uL (0.0-0.4); EOSINOPHILS % (AUTO) 3.5 % (0.0-4.0); HEMATOCRIT 40.7 % (36-54); HEMOGLOBIN 13.8 g/dL (14.0-18.0); LYMPHOCYTES % (AUTO) 19.4 % (20.5-51.5); MEAN CORPUSCULAR HEMOGLOBIN 30 pg (27-31); MEAN CORPUSCULAR HGB CONC 34 % (32-36); MEAN CORPUSCULAR VOLUME 88 fL (79.0-98.0); MONOCYTES # (AUTO) 0.9 K/uL (0.0-1.0); MONOCYTES % (AUTO) 17.5 % (1.7-9.3); NEUTROPHILS # (AUTO) 2.9 K/uL (1.8-7.7); NEUTROPHILS % (AUTO) 59.2 % (40.0-70.0); PLATELET COUNT (AUTO) 173 K/uL (130-430); RED BLOOD CELL COUNT(AUTO) 4.62 MIL/uL (4.2-6.2); RED CELL DISTRIBUTION WIDTH 14.7 % (9.0-15.0); WHITE BLOOD COUNT (AUTO) 4.9 K/uL (4.8-10.8)
[2023-09-23 07:39] LABS: ALANINE AMINOTRANSFERASE 14 U/L (12-78); ALBUMIN 2.7 g/dL (3.4-4.8); ANION GAP 8 (5-15); ASPARTATE AMINOTRANSFERASE 14 U/L (10-37); CALCIUM 8.9 mg/dL (8.4-11.0); CARBON DIOXIDE 30 mmol/L (23-29); CHLORIDE 103 mmol/L (98-107); CREATININE 1.53 mg/dL (0.55-1.30); GLUCOSE 113 mg/dL (74-106); POTASSIUM 4.1 mmol/L (3.5-5.1); SODIUM SERUM 141 mmol/L (136-145); TOTAL BILIRUBIN 0.2 mg/dL (0.0-1.0); TOTAL PROTEIN, SERUM 6.6 g/dL (6.4-8.3); UREA NITROGEN, BLOOD 24 mg/dL (8-21)
[2023-09-23 08:00] VITALS: BP_SYST 167; PULSE 64; RESP 20; TEMP 98.2; O2SAT 90
[2023-09-23] MEDS: PANTOPRAZOLE SODIUM 40 MG/VIAL (PROTONIX) IVP SCH (09:16)
[2023-09-23] MEDS: ASCORBIC ACID 500 MG TABLET PO SCH (09:16)
[2023-09-23] MEDS: ASPIRIN 81 MG TAB.CHEW PO SCH (09:16)
[2023-09-23] MEDS: DOCUSATE SODIUM 100 MG CAPSULE PO SCH (09:17)
[2023-09-23] MEDS: hydrALAZINE HCL 25 MG TABLET PO SCH (09:17)
[2023-09-23] MEDS: TAMSULOSIN HCL 0.4 MG CAP PO SCH (09:18)
[2023-09-23] MEDS: FUROSEMIDE 20 MG TABLET PO SCH (09:18)
[2023-09-23] MEDS: CHOLECALCIFEROL (VITAMIN D3) 5,000 UNIT TABLET PO SCH (09:18)
[2023-09-23] MEDS: SENNOSIDES 8.6 MG TABLET PO SCH (09:18)
[2023-09-23] MEDS: CARVEDILOL 25 MG TABLET (COREG) PO SCH (09:19)
[2023-09-23] MEDS: MEMANTINE HCL 5 MG TABLET PO SCH (09:19)
[2023-09-23] MEDS: D5W 1,000 ML IV SCH (11:14)
[2023-09-23 11:29] VITALS: BP_SYST 149; PULSE 74; RESP 16; TEMP 97.9; O2SAT 93
[2023-09-23 12:46] VITALS: BP_SYST 145; PULSE 66; RESP 18; TEMP 98.5; O2SAT 94
[2023-09-23] MEDS ORDERED: ROCPM1 IV (14:24)
== END 2023-09-23 14:40 | DRG 698 ==
LOC: SED 12:03 → STU 15:07 → SMU 09-21 14:31
PROVIDERS: ADMIT Internal Medicine; ATTEND Internal Medicine
DX: T83.518A Infection and inflammatory reaction due to other urinary catheter, initial encounter (principal); N17.0 Acute kidney failure with tubular necrosis; N39.0 Urinary tract infection, site not specified; E44.1 Mild protein-calorie malnutrition; I50.32 Chronic diastolic (congestive) heart failure; R31.9 Hematuria, unspecified; J45.909 Unspecified asthma, uncomplicated; G30.8 Other Alzheimer's disease; F02.80 Dementia in other diseases classified elsewhere, unspecified severity, without behavioral disturbance, psychotic disturbance, mood disturbance, and anxiety; I11.0 Hypertensive heart disease with heart failure; N40.0 Benign prostatic hyperplasia without lower urinary tract symptoms; G24.01 Drug induced subacute dyskinesia; J44.9 Chronic obstructive pulmonary disease, unspecified; F32.A Depression, unspecified; B96.4 Proteus (mirabilis) (morganii) as the cause of diseases classified elsewhere; K59.00 Constipation, unspecified; Z68.20 Body mass index [BMI] 20.0-20.9, adult; Z79.899 Other long term (current) drug therapy; Z88.8 Allergy status to other drugs, medicaments and biological substances; Z91.018 Allergy to other foods; Z85.528 Personal history of other malignant neoplasm of kidney; Z85.51 Personal history of malignant neoplasm of bladder; Z90.5 Acquired absence of kidney
CPT/HCPCS: 36415; 76376; 76700-TC; 80048; 80053; 80076; 81000; 81001; 81015; 83605; 83690; 83880; 85025; 85610-TC; 85730-TC; 87040; 87081; 87086; 93005; 94760; 96365; 96375; 97116-GP; 97163-GP; 97530-GP; 99285; C9113; G0378; J0696; J2405; J7060